=== PATIENT | female | born 1975 | race Caucasian/White ===

== ENCOUNTER 2018-07-23 05:55 | Day surgery (SDC) | payer OTHER ==
[~2018-07-23 05:55] MED LIST: BISOPROLOL-HCT1 EACH PO; GLIMEPIRIDE4 MG PO; JANUMET XR 50-1 EAC1 PO; JARDIANCE10 MG PO
== END 2018-07-23 12:45 | disposition home or self-care (01) ==
LOC: CIR.AMB 05:55
DX: N85.01 Benign endometrial hyperplasia (principal)